=== PATIENT | female | born 1990 | race Caucasian/White ===

== ENCOUNTER → 2016-11-19 | Outpatient (CLI) | payer MEDICAID ==
[~2016-11-19] MED LIST: ACET650S12 PR; ACET650T59 PO; BENZ100C4 PO; BENZ9GEL PO; BIOT1TAB3 PO; BISA10SU2 PR; CLOP75TA PO; DOCU-30 PO; FERR325T20 PO; HYDR25TA11 PO; ILOP6TAB2 PO; LEVO750T26 PO; MILK OF MAG PO; NA P133E2 RC; ONDA4TAB7 PO; OXYC1TAB7 PO; SIMV20TA3 PO; TRAM50TA2 PO; WARF5TAB PO
[2016-11-19 15:57] LABS: BLOOD UREA NITROGEN 12 mg/dL (7-18)
== END | disposition home or self-care (01) ==
LOC: STAR 14:26
PROVIDERS: ATTEND Neurological Surgery
DX: Z01.818 Encounter for other preprocedural examination (principal); M95.2 Other acquired deformity of head
CPT/HCPCS: 36415; 71020; 80048; 85025; 85610; 85730; 93005

== ENCOUNTER 2016-11-25 13:30 | Inpatient (IN) | payer MEDICAID ==
[~2016-11-25] VITALS: Ht 170.2 cm; Wt 81.6 kg
[~2016-11-25 13:30] MED LIST changes: +ACETAMINOPHEN 325 MG TABLET PO PRN; +ACETAMINOPHEN 650 MG SUPP PR PRN; +BACITRACIN 50,000 UNIT ONE; +BUPIVACAINE/PF-EPI 0.5% 1:200K ONE; +FENTANYL PF 250 MCG/5ML ONE; +LIDOCAINE 1%, 2ML ONE; +MIDAZOLAM 1 MG/ML, 2ML ONE; +ORAJEL 7GM TUBE MM PRN; +THROMBIN 20,000 UNIT VIAL TP ONE; +VANCOMYCIN PER PHARMACY MC SCH; +morphine SULFATE 10 MG/ML, 1ML IV PRN
[2016-11-25] MEDS ORDERED: NEOSTIGMINE 1 MG/ML, 10ML ONE (13:47)
[2016-11-25] MEDS ORDERED: SUCCINYLCHOLINE 20 MG/ML, 10ML ONE (13:47)
[2016-11-25] MEDS ORDERED: PROPOFOL 10 MG/ML, 20ML ONE (13:47)
[2016-11-25] MEDS ORDERED: ONDANSETRON 2MG/ML, 2ML ONE ×2 (13:47→23:44)
[2016-11-25] MEDS ORDERED: DEXAMETHASONE 4 MG/ML, 1ML ONE (13:47)
[2016-11-25] MEDS ORDERED: ROCURONIUM 10 MG/ML ONE (13:47)
[2016-11-25] MEDS ORDERED: GLYCOPYRROLATE 0.2MG/1ML ONE (13:47)
[2016-11-25] MEDS ORDERED: CLINDAMYCIN 150 MG/ML, 6ML ONE (15:05)
[2016-11-25] MEDS ORDERED: THROMBIN 20,000 UNIT VIAL TP ONE (15:50)
[2016-11-25] MEDS ORDERED: HYDROmorphone 2 MG/ML, 1ML ONE (16:08)
[2016-11-25] MEDS ORDERED: BACITRACIN OINT 500U/GM, 15 GM ONE (16:12)
[2016-11-25] MEDS ORDERED: VANCOMYCIN 1,500 MG in SODIUM CHLORIDE 0.9% 250 ML IV ONE (20:00)
[2016-11-25] MEDS: LEVETIRACETAM 500 MG TABLET PO SCH (21:00)
[2016-11-25] MEDS: SIMVASTATIN 20 MG TABLET PO SCH (21:00)
[2016-11-25] MEDS: FAMOTIDINE 20 MG TABLET PO SCH (21:00)
[2016-11-25] MEDS: ONDANSETRON 2MG/ML, 2ML IV PRN (23:45)
[2016-11-26] MEDS: LACTATED RINGERS 1,000 ML IV SCH (04:00)
[2016-11-26] MEDS: ONDANSETRON 2MG/ML, 2ML IV PRN (04:10)
[2016-11-26] MEDS ORDERED: ONDANSETRON 2MG/ML, 2ML ONE (04:14)
[2016-11-26] MEDS: DOCUSATE 100 MG CAPSULE PO SCH ×2 (09:00→21:00)
[2016-11-26] MEDS: FAMOTIDINE 20 MG TABLET PO SCH ×2 (09:30→21:00)
[2016-11-26] MEDS: LEVETIRACETAM 500 MG TABLET PO SCH ×2 (09:30→21:00)
[2016-11-26 11:07] VITALS: BP 109/71
[2016-11-26] MEDS ORDERED: HYDROcodone/APAP 5/325 TABLET ONE (11:30)
[2016-11-26] MEDS: HYDROcodone/APAP 5/325 TABLET PO PRN ×2 (11:30→19:44)
[2016-11-26] MEDS ORDERED: BISACODYL 10 MG SUPP PR PRN (13:00)
[2016-11-26] MEDS ORDERED: MAGNESIUM HYDROXIDE 8%, 30ML UDC PO SCH (13:00)
[2016-11-26] MEDS ORDERED: PHARMACOKINETIC MONITORING MC PRN (13:30)
[2016-11-26] MEDS ORDERED: PHARMACOKINETIC CONSULTATION MC ONE (13:30)
[2016-11-26] MEDS ORDERED: METOCLOPRAMIDE 5 MG/ML, 2ML IV PRN (14:00)
[2016-11-26 15:01] LABS: BLOOD UREA NITROGEN 10 mg/dL (7-18)
[2016-11-26] MEDS ORDERED: FENTANYL PF 100 MCG/2ML IV PRN (20:00)
[2016-11-26 20:19] VITALS: BP 100/63
[2016-11-26] MEDS: SIMVASTATIN 20 MG TABLET PO SCH (21:00)
[2016-11-26] MEDS: VANCOMYCIN 1,600 MG in SODIUM CHLORIDE 0.9% 250 ML IV SCH (22:00)
[2016-11-27 01:44] VITALS: BP 112/67
[2016-11-27] MEDS: VANCOMYCIN 1,600 MG in SODIUM CHLORIDE 0.9% 250 ML IV SCH (01:58)
[2016-11-27] MEDS: HYDROcodone/APAP 5/325 TABLET PO PRN ×2 (01:58→09:46)
[2016-11-27] MEDS: LACTATED RINGERS 1,000 ML IV SCH ×2 (02:04→09:00)
[2016-11-27] MEDS: LEVETIRACETAM 500 MG TABLET PO SCH (09:46)
[2016-11-27] MEDS: DOCUSATE 100 MG CAPSULE PO SCH (09:46)
[2016-11-27 12:15] VITALS: BP 112/67
[2016-11-28] MEDS ORDERED: LACTATED RINGERS 1,000 ML IV SCH (10:52)
== END 2016-11-27 13:30 | DRG 516 ==
LOC: ORIP 13:30 → 4NOR 11-26 11:04
PROVIDERS: ADMIT Neurological Surgery; ATTEND Neurological Surgery
PROC: 0NU007Z Supplement Skull with Autologous Tissue Substitute, Open Approach (ICD-10-PCS; principal; 2016-11-25 13:30)
DX: M95.2 Other acquired deformity of head (principal); I69.351 Hemiplegia and hemiparesis following cerebral infarction affecting right dominant side; F32.9 Major depressive disorder, single episode, unspecified; F41.9 Anxiety disorder, unspecified; Z88.1 Allergy status to other antibiotic agents; Z88.8 Allergy status to other drugs, medicaments and biological substances; Z79.899 Other long term (current) drug therapy; Z90.89 Acquired absence of other organs; I69.320 Aphasia following cerebral infarction
CPT/HCPCS: 36415; 70450; 80048; 85025; 87081; C1713; J1100; J1170; J2250; J2405; J2704; J2710; J3010; J3370; J3490; C1781; J0330; J7050; J7120

== ENCOUNTER 2017-05-15 10:47 | Emergency (ER) | payer MEDICAID ==
[~2017-05-15] VITALS: Ht 165.1 cm; Wt 77.2 kg
[~2017-05-15 10:47] MED LIST changes: -ACETAMINOPHEN 325 MG TABLET PO PRN; -ACETAMINOPHEN 650 MG SUPP PR PRN; -BACITRACIN 50,000 UNIT ONE; +BENZ-17 PO; -BENZ100C4 PO; -BUPIVACAINE/PF-EPI 0.5% 1:200K ONE; +DOCU-131 PO; -DOCU-30 PO; -FENTANYL PF 250 MCG/5ML ONE; +FERR325T18 PO; -FERR325T20 PO; -LIDOCAINE 1%, 2ML ONE; -MIDAZOLAM 1 MG/ML, 2ML ONE; -ORAJEL 7GM TUBE MM PRN; -THROMBIN 20,000 UNIT VIAL TP ONE; -VANCOMYCIN PER PHARMACY MC SCH; -morphine SULFATE 10 MG/ML, 1ML IV PRN
[2017-05-15] MEDS ORDERED: SODIUM CHLORIDE 0.9% 1,000 ML IV ONE (11:09)
[2017-05-15] MEDS ORDERED: ONDANSETRON ODT 4 MG ONE (11:28)
[2017-05-15] MEDS ORDERED: LORazepam 1MG TABLET ONE (11:28)
[2017-05-15] MEDS ORDERED: LORazepam 2 MG/ML, 1ML IVPush ONE (11:30)
[2017-05-15] MEDS ORDERED: SODIUM CHLORIDE FLUSH 10ML SYR IVF ONE (11:30)
[2017-05-15] MEDS ORDERED: ONDANSETRON ODT 4 MG PO ONE (11:30)
[2017-05-15] MEDS ORDERED: ONDANSETRON 2MG/ML, 2ML IVPush ONE (11:30)
[2017-05-15] MEDS ORDERED: LORazepam 1MG TABLET PO ONE (11:30)
[2017-05-15 11:41] LABS: HEMATOCRIT 39.3 % (34.6-47.8); HEMOGLOBIN 12.3 g/dL (11.7-16.4); WHITE BLOOD COUNT 8.8 x10^3/uL (3.4-10)
[2017-05-15 11:47] LABS: ASPARTATE AMINO TRANSFERASE 9 U/L (15-37); BLOOD UREA NITROGEN 7 mg/dL (7-18)
[2017-05-15 19:41] VITALS: BP 116/72
== END 2017-05-15 13:51 | disposition home or self-care (01) ==
LOC: ED 12:20
DX: K52.9 Noninfective gastroenteritis and colitis, unspecified (principal); Z98.890 Other specified postprocedural states; Z86.73 Personal history of transient ischemic attack (TIA), and cerebral infarction without residual deficits
CPT/HCPCS: 36415; 70450; 80053; 81003; 83690; 84703; 85025; 99285; Q0162

== ENCOUNTER 2018-03-27 16:35 | Emergency (ER) | payer MEDICAID ==
[~2018-03-27] VITALS: Ht 165.1 cm; Wt 60.0 kg
[2018-03-27] MEDS ORDERED: ACET500T63 PO (17:17)
[2018-03-27] MEDS ORDERED: TRAM50TA2 PO (17:17)
[2018-03-27] MEDS ORDERED: ONDA4TAB12 PO (17:17)
[2018-03-27] MEDS ORDERED: BIOT800T PO (17:17)
[2018-03-27] MEDS ORDERED: PROMETHAZINE 25 MG/ML, 1ML ONE (18:30)
[2018-03-27] MEDS ORDERED: ACETAMINOPHEN 325 MG TABLET ONE (18:30)
[2018-03-27] MEDS ORDERED: ACETAMINOPHEN 325 MG TABLET PO ONE (18:30)
[2018-03-27] MEDS ORDERED: PROMETHAZINE 25 MG/ML, 1ML IM ONE (18:30)
[2018-03-27] MEDS ORDERED: DIPHENHYDRAMINE 25 MG CAPSULE ONE (18:30)
[2018-03-27] MEDS ORDERED: DIPHENHYDRAMINE 25 MG CAPSULE PO ONE (18:30)
[2018-03-27 19:26] VITALS: BP 109/64
== END 2018-03-27 19:36 | disposition home or self-care (01) ==
LOC: ED 19:22
DX: R51 Headache (principal); E78.5 Hyperlipidemia, unspecified; Z86.73 Personal history of transient ischemic attack (TIA), and cerebral infarction without residual deficits
CPT/HCPCS: 70450; 96372; 99284; J2550; Q0163

== ENCOUNTER 2018-07-02 13:21 | Emergency (ER) | payer MEDICAID ==
[~2018-07-02] VITALS: Ht 165.1 cm; Wt 78.2 kg
[~2018-07-02 13:21] MED LIST changes: +ACET500T63 PO; +BIOT800T PO; +ONDA4TAB12 PO
--- NOTE | 2018-07-02 15:14 | NUR ---
Pt wheeled to room by charge nurse.
--- NOTE | 2018-07-02 15:17 | NUR ---
Dr. Rene at bedside to evaluate pt.
[2018-07-02] MEDS ORDERED: ONDANSETRON ODT 4 MG PO ONE (15:30)
[2018-07-02] MEDS ORDERED: HYDROmorphone 2 MG/ML, 1ML IM ONE (15:30)
[2018-07-02] MEDS ORDERED: HYDROmorphone 2 MG/ML, 1ML ONE (15:32)
[2018-07-02] MEDS ORDERED: ONDANSETRON ODT 4 MG ONE (15:32)
--- NOTE | 2018-07-02 15:41 | NUR ---
task rn note: pt medicated per emar, tolerated well. pt to CT at this time.
--- NOTE | 2018-07-02 15:55 | NUR ---
Pt back to room from imaging.
[2018-07-02 16:36] VITALS: BP 110/65
--- NOTE | 2018-07-02 17:32 | NUR ---
Patient/Caregiver given discharge instructions and they have confirmed that they understand the instructions. Patient wheeled to discharge area with caregiver.
== END 2018-07-02 17:33 | disposition home or self-care (01) ==
LOC: ED 16:39
DX: G43.909 Migraine, unspecified, not intractable, without status migrainosus (principal); E78.5 Hyperlipidemia, unspecified; F42.8 Other obsessive-compulsive disorder; Z86.73 Personal history of transient ischemic attack (TIA), and cerebral infarction without residual deficits; Z87.19 Personal history of other diseases of the digestive system
CPT/HCPCS: 70450; 96372; 99284; J1170; Q0162

== ENCOUNTER 2018-12-17 20:33 | Emergency (ER) | payer MEDICAID ==
[~2018-12-17] VITALS: Ht 177.8 cm; Wt 85.0 kg
--- NOTE | 2018-12-17 20:55 | NUR ---
JAIME. REPORTRECEIVED FROM EMS. PT C/O FARRELL/N X 3 DAYS. PT HAS HX OF STROKE X A FEW TIMES AND HAS RIGHT SIDE WEAKNESS. HER SPEECH IS HER BASELINE PER CARETALKER. PT'S AOX4. RESPS EVEN AND UNLABORED. BP/SPO2 MONITORS IN PLACE. CALL LIGHT WITHIN REACH. PA AT BEDSIDE TO EVALUATE AT THIS TIME.
--- NOTE | 2018-12-17 20:56 | NUR ---
PT AMB TO BR AND BACK TO ROOM FOR UA. PT IS NOT ABLE TO PROVIDE URINE SAMPLE AT THIS TIME.
[2018-12-17] MEDS ORDERED: ONDANSETRON 2MG/ML, 2ML IVPush ONE (21:00)
[2018-12-17] MEDS ORDERED: ONDANSETRON 2MG/ML, 2ML IVPush PRN (21:00)
[2018-12-17] MEDS ORDERED: ONDANSETRON 2MG/ML, 2ML ONE (21:03)
--- NOTE | 2018-12-17 21:16 | NUR ---
PT MEDICATED PER EMAR FOR NAUSEA. PT TOLERATED WELL. STOVE FITTER AT BEDSIDE NOW.
[2018-12-17 21:28] LABS: BASOPHILS # (AUTO) 0.03 x10^3/uL (0-0.1); BASOPHILS % (AUTO) 0 % (0-1); EOSINOPHILS # (AUTO) 0.03 x10^3/uL (0-0.4); EOSINOPHILS % (AUTO) 0 % (1-7); LYMPHOCYTES # (AUTO) 1.87 x10^3/uL (1-3.4); LYMPHOCYTES % (AUTO) 20 % (22-44); MD NO; MEAN CORPUSCULAR HEMOGLOBIN 20.8 pg (27.0-34.8); MEAN CORPUSCULAR HGB CONC 31.1 g/dL (32.4-35.8); MEAN CORPUSCULAR VOLUME 66.8 fL (80-100); MEAN PLATELET VOLUME 8.9 fL (7.4-10.4); MONOCYTES # (AUTO) 0.45 x10^3/uL (0.2-0.8); MONOCYTES % (AUTO) 5 % (2-9); NEUTROPHILS # (AUTO) 7.23 x10^3/uL (1.8-6.8); NEUTROPHILS % (AUTO) 75 % (42-75); PLATELET COUNT 286 x10^3/uL (130-400); RED BLOOD COUNT 5.79 x10^6/uL (3.82-5.3); RED CELL DISTRIBUTION WIDTH 20.8 % (9.6-15.2)
[2018-12-17 21:34] LABS: ALANINE AMINOTRANSFERASE 30 U/L (12-78); ALBUMIN 4.2 g/dL (3.4-5.0); ANION GAP 7 mmol/L (5-15); CALCIUM 9.2 mg/dL (8.5-10.1); CHLORIDE 110 mmol/L (98-107); CREATININE 0.96 mg/dL (0.55-1.02)
[2018-12-17 21:38] LABS: ALKALINE PHOSPHATASE 60 U/L (45-117); BILIRUBIN,TOTAL 0.5 mg/dL (0.2-1.0); TOTAL PROTEIN 7.8 g/dL (6.4-8.2)
--- NOTE | 2018-12-17 22:00 | NUR ---
PT'S FATHER'S AND MOTHER'S NUMBER GIVEN TO EDMD.
[2018-12-17] MEDS ORDERED: KETOROLAC 30 MG/1 ML ONE (22:12)
[2018-12-17] MEDS ORDERED: DIPHENHYDRAMINE 50 MG/ML, 1ML ONE (22:12)
--- NOTE | 2018-12-17 22:18 | NUR ---
PT MEDICATED PER EMAR. PT TOLERATED WELL.
[2018-12-17] MEDS ORDERED: KETOROLAC 30 MG/1 ML IVPush ONE (22:30)
[2018-12-17] MEDS ORDERED: DIPHENHYDRAMINE 50 MG/ML, 1ML IVPush ONE (22:30)
--- NOTE | 2018-12-17 22:33 | NUR ---
PT IS NOT ABLE TO PROVIDE URINE SAMPLE STILL.
[2018-12-17 23:15] VITALS: BP 108/66
--- NOTE | 2018-12-17 23:39 | NUR ---
PT GIVEN DC INSTRUCTIONS. PT'S AOX4. RESPS EVEN AND UNLABORED. NO ACUTE DISTRESS AT DC.
== END 2018-12-17 23:40 | disposition home or self-care (01) ==
LOC: ED 21:01
DX: R51 Headache (principal); F84.0 Autistic disorder
CPT/HCPCS: 36415; 70450; 80053; 83690; 84703; 85025; 93005; 96374; 96375; 99284; J1200; J1885; J2405

== ENCOUNTER 2019-05-25 15:31 | Outpatient (CLI) | payer MEDICAID ==
[~2019-05-25 15:31] MED LIST changes: -BISA10SU2 PR; +BISA10SU4 PR; +HYDR-826 PO; -HYDR25TA11 PO
== END 2019-05-25 23:59 | disposition home or self-care (01) ==
LOC: CFH 15:31
PROVIDERS: ATTEND Psychiatry & Neurology Neuromuscular Medicine
DX: G93.89 Other specified disorders of brain (principal); Z86.69 Personal history of other diseases of the nervous system and sense organs; Z86.73 Personal history of transient ischemic attack (TIA), and cerebral infarction without residual deficits
CPT/HCPCS: 70450

== ENCOUNTER 2019-09-17 10:07 | Emergency (ER) | payer MEDICAID ==
[~2019-09-17] VITALS: Ht 162.6 cm; Wt 84.5 kg
[~2019-09-17 10:07] MED LIST changes: +ONDA-89 PO; -ONDA4TAB12 PO; +SIMV20TA19 PO; -SIMV20TA3 PO
--- NOTE | 2019-09-17 10:31 | NUR ---
THIS IS A 29 YO F W/ C/O FARRELL X3 DAYS, FEVER AND CHILLS. PT IS CURRENTLY AFEBRILE. EMS REPORTS PT IS TO SEE DR FOR ANY FARRELL LASTING LONGER THEN 3 DAYS. HX: STROKE, ASPERGERS. PT PRESENTS W/ A POLST. PT REQUESTING NO SHOTS OR IV'S. RESP EVEN AND UNLABORED. NADN. VS WDL. PT CHANGED INTO GOWN. RESTING ON GURNEY W/ CALL LIGHT IN REACH. NATALIYA RANDHAWA AT BEDSIDE FOR EVAL.
--- NOTE | 2019-09-17 12:06 | NUR ---
PT BACK FROM CT.
--- NOTE | 2019-09-17 12:17 | NUR ---
CT RESULTED. PT IS UP FOR RECHECK AT THIS TIME.
[2019-09-17] MEDS ORDERED: HYDROcodone/APAP 5/325 TABLET ONE (12:44)
[2019-09-17] MEDS ORDERED: ONDANSETRON ODT 4 MG ONE (12:45)
[2019-09-17 12:47] VITALS: BP 111/72
--- NOTE | 2019-09-17 12:47 | NUR ---
PT MEDICATED PER EMAR.
[2019-09-17] MEDS ORDERED: ONDANSETRON ODT 4 MG PO ONE (13:00)
[2019-09-17] MEDS ORDERED: HYDROcodone/APAP 5/325 TABLET PO ONE (13:00)
--- NOTE | 2019-09-17 13:08 | NUR ---
PT AMBULATED TO THE BR W/ A STEADY GAIT.
== END 2019-09-17 14:09 | disposition home or self-care (01) ==
LOC: ED 10:22
DX: G43.001 Migraine without aura, not intractable, with status migrainosus (principal); E78.5 Hyperlipidemia, unspecified; F20.9 Schizophrenia, unspecified; Z86.73 Personal history of transient ischemic attack (TIA), and cerebral infarction without residual deficits
CPT/HCPCS: 70450; 99284; Q0162

== ENCOUNTER 2019-11-07 10:52 | Emergency (ER) | payer MEDICAID ==
[~2019-11-07] VITALS: Ht 165.1 cm; Wt 80.0 kg
--- NOTE | 2019-11-07 11:07 | NUR ---
THIS IS A 29 YO F BIB EMS W/ C/O HAX3 DAYS. PT REPORTS SHE WAS TOLD BY NEUROLIGIST THAT IF SHE HAS A FARRELL FOR GREATER THEN 3 DAYS SHE NEEDS TO COME GET CT SCAN DONE TO RULE OUT STROKE. PT REPORTS SHE HAS HAD 10 STROKES AND A TBI IN 2017. PT PRESENTS W/ POLST. CAREGIVER PHONE NUMBER [phone] MARLYS. PT LIVES AT HOME BY HERSELF. HX OF ASPERGER, STROKES. PT RESTING ON GURNEY W/ CALL LIGHT IN REACH AND SIDE RAILS UPX2. VSS, CONNECTED TO MONITORING. AWAITING ED EVAL.
[2019-11-07] MEDS ORDERED: ONDANSETRON ODT 4 MG ONE (11:38)
[2019-11-07] MEDS ORDERED: HYDROcodone/APAP 5/325 TABLET ONE (11:39)
--- NOTE | 2019-11-07 11:43 | NUR ---
PT MEDICATED PER EMAR.
[2019-11-07] MEDS ORDERED: HYDROcodone/APAP 5/325 TABLET PO ONE (12:00)
[2019-11-07] MEDS ORDERED: ONDANSETRON ODT 4 MG PO ONE (12:00)
--- NOTE | 2019-11-07 12:22 | NUR ---
TELEPHONE CALL FROM [facility] CAREGIVER [phone], REQ PT BE SENT HOME BY [facility] [employer] AND WOULD LIKE A PHONE CALL WHEN WE SEND HER BACK HOME.
[2019-11-07 12:59] VITALS: BP 110/68
--- NOTE | 2019-11-07 12:59 | NUR ---
PT REPORTS RELIEF OF PAIN AFTER MEDS. PT AMBULATED TO THE BR USING A CANE, STEADY GAIT.
--- NOTE | 2019-11-07 13:45 | NUR ---
PT PICKED UP BY [facility]. MAGAN CAREGIVER CALLED AND NOTIFIED.
== END 2019-11-07 13:47 | disposition home or self-care (01) ==
LOC: ED 13:03
DX: R51 Headache (principal); E78.5 Hyperlipidemia, unspecified; Z86.73 Personal history of transient ischemic attack (TIA), and cerebral infarction without residual deficits
CPT/HCPCS: 70450; 99284; Q0162

== ENCOUNTER 2020-01-19 11:10 | Emergency (ER) | payer MEDICAID ==
[~2020-01-19] VITALS: Ht 165.1 cm; Wt 83.3 kg
[~2020-01-19 11:10] MED LIST changes: -WARF5TAB PO; +WARF5TAB2 PO
--- NOTE | 2020-01-19 11:24 | NUR ---
MAINTENANCE SHOP LABORER: PT WALKED BACK FROM LOBBY TO ROOM AT THIS TIME. STEADY UPON AMBULATION. NO ACUTE DISTRESS NOTED AT THIS TIME.
--- NOTE | 2020-01-19 11:48 | NUR ---
JORGE RANDHAWA AT BS NOW.
[2020-01-19] MEDS ORDERED: METOCLOPRAMIDE 5 MG/ML, 2ML ONE (12:21)
[2020-01-19] MEDS ORDERED: DIPHENHYDRAMINE 50 MG/ML, 1ML ONE (12:21)
[2020-01-19] MEDS ORDERED: KETOROLAC 30 MG/1 ML ONE (12:21)
[2020-01-19] MEDS ORDERED: KETOROLAC 30 MG/1 ML IVPush ONE (12:30)
[2020-01-19] MEDS ORDERED: DIPHENHYDRAMINE 50 MG/ML, 1ML IVPush ONE (12:30)
[2020-01-19] MEDS ORDERED: METOCLOPRAMIDE 5 MG/ML, 2ML IVPush ONE (12:30)
[2020-01-19] MEDS ORDERED: ONDANSETRON ODT 4 MG ONE (12:37)
[2020-01-19] MEDS ORDERED: DIPHENHYDRAMINE 25 MG CAPSULE ONE (12:38)
--- NOTE | 2020-01-19 12:40 | NUR ---
PT'S CAREGIVER FROM [facility] TALKING WITH PT'S FATHER/GUARDIAN ON THE PHONE. FATHER CONCERNED THAT PT IS GETTING FREQUENT CT SCANS, QUESTIONING IF CT IS NECESSARY. ER PA NOTIFIED, STATES PT/CAREGIVER MAY REFUSE CT.
--- NOTE | 2020-01-19 12:45 | NUR ---
PT/CAREGIVER REFUSED IV INSERTION. PT YELLED AND SAID, "NO, NO IT'S GOING TO HURT!" PT'S CAREGIVER MARLYS STATED PT IS A HARD STICK, REQUESTED PO OR IM MEDICATION. ER PA NOTIFIED, ORDERS CHANGED.
[2020-01-19 12:50] VITALS: BP 110/64
--- NOTE | 2020-01-19 12:59 | NUR ---
PT MEDICATED PER ORDERS, TOLERATED IM INJECTION WELL. SPOKE WITH PT'S FATHER/GUARDIAN BRUNO ON THE PHONE, HE IS REFUSING CT AT THIS TIME. INSTRUCTED FATHER TO HAVE PT F/U WITH HER NEUROLOGIST SCHEDULED ON 01/27/20, AND TO RETURN TO ED FOR ANY CONTINUED OR CONCENRNING SYMPTOMS.
[2020-01-19] MEDS ORDERED: KETOROLAC 30 MG/1 ML IM ONE (13:00)
[2020-01-19] MEDS ORDERED: SODIUM CHLORIDE 0.9% 1,000ML IVBOLUS ONE (13:00)
[2020-01-19] MEDS ORDERED: DIPHENHYDRAMINE 25 MG CAPSULE PO ONE (13:00)
[2020-01-19] MEDS ORDERED: ONDANSETRON ODT 4 MG PO ONE (13:00)
--- NOTE | 2020-01-19 13:23 | NUR ---
PT AMBULATED TO BR WITH CAREGIVER WITHOUT DIFFICULTY. PER PT, HEADACHE WENT FROM 10/10 TO 5/10 AFTER MEDS. CHART UP FOR RECHECK.
--- NOTE | 2020-01-19 13:38 | NUR ---
ERP IN TO SPEAK WITH PT AND CAREGIVER.
== END 2020-01-19 13:45 | disposition home or self-care (01) ==
LOC: ED 12:41
DX: G44.229 Chronic tension-type headache, not intractable (principal); E78.5 Hyperlipidemia, unspecified; Z88.8 Allergy status to other drugs, medicaments and biological substances; Z86.73 Personal history of transient ischemic attack (TIA), and cerebral infarction without residual deficits
CPT/HCPCS: 96372; 99283; J1885; Q0162; Q0163

== ENCOUNTER 2020-03-16 10:43 | Emergency (ER) | payer MEDICAID ==
[~2020-03-16] VITALS: Ht 165.1 cm; Wt 80.7 kg
[2020-03-16] MEDS ORDERED: METOCLOPRAMIDE 5 MG/ML, 2ML IVPush ONE (11:30)
[2020-03-16] MEDS ORDERED: SODIUM CHLORIDE FLUSH 10ML SYR IVF ONE (11:30)
[2020-03-16] MEDS ORDERED: DIPHENHYDRAMINE 50 MG/ML, 1ML IVPush ONE (11:30)
[2020-03-16] MEDS ORDERED: KETOROLAC 30 MG/1 ML IVPush ONE (11:30)
[2020-03-16] MEDS ORDERED: SODIUM CHLORIDE 0.9% 1,000ML IVBOLUS ONE (11:30)
[2020-03-16 11:35] LABS: MICROSCOPIC INDICATED
[2020-03-16 12:07] LABS: ALANINE AMINOTRANSFERASE 42 U/L (12-78); ALBUMIN 4.1 g/dL (3.4-5.0); ANION GAP 9 mmol/L (5-15); CALCIUM 9.5 mg/dL (8.5-10.1); CHLORIDE 109 mmol/L (98-107); CREATININE 0.93 mg/dL (0.55-1.02)
[2020-03-16 12:12] LABS: ALKALINE PHOSPHATASE 61 U/L (45-117); BILIRUBIN,TOTAL 0.4 mg/dL (0.2-1.0); TOTAL PROTEIN 8.2 g/dL (6.4-8.2)
[2020-03-16] MEDS ORDERED: DIPHENHYDRAMINE 50 MG/ML, 1ML ONE (13:02)
[2020-03-16] MEDS ORDERED: METOCLOPRAMIDE 5 MG/ML, 2ML ONE (13:02)
[2020-03-16] MEDS ORDERED: KETOROLAC 30 MG/1 ML ONE (13:03)
[2020-03-16 13:08] LABS: BASOPHILS # (AUTO) 0.04 x10^3/uL (0-0.1); BASOPHILS % (AUTO) 1 % (0-1); EOSINOPHILS # (AUTO) 0.17 x10^3/uL (0-0.4); EOSINOPHILS % (AUTO) 2 % (1-7); LYMPHOCYTES # (AUTO) 2.01 x10^3/uL (1-3.4); LYMPHOCYTES % (AUTO) 22 % (22-44); MD MORPH REVIEW ONLY; MEAN CORPUSCULAR HEMOGLOBIN 19.2 pg (27.0-34.8); MEAN CORPUSCULAR HGB CONC 30.4 g/dL (32.4-35.8); MEAN PLATELET VOLUME 9.3 fL (7.4-10.4); MONOCYTES # (AUTO) 0.35 x10^3/uL (0.2-0.8); MONOCYTES % (AUTO) 4 % (2-9); NEUTROPHILS # (AUTO) 6.46 x10^3/uL (1.8-6.8); NEUTROPHILS % (AUTO) 72 % (42-75); PLATELET COUNT 292 x10^3/uL (130-400); RED CELL DISTRIBUTION WIDTH 21.4 % (9.6-15.2)
[2020-03-16 13:09] LABS: ANISOCYTOSIS 2+; HYPOCHROMIA 1+; MICROCYTOSIS 2+
[2020-03-16 13:10] LABS: OVALOCYTES 2+
[2020-03-16 13:11] LABS: <PLATELET ESTIMATE> ADEQUATE; <PLT MORPHOLOGY> NORMAL PLT MORPH; ACANTHOCYTES 1+
--- NOTE | 2020-03-16 13:11 | NUR ---
PT REPORT FROM ANAHI GRACIA. PT CARE TO BE ASSUMED. IV INFUSING W-O; 22G LT FA; SITE PATENT. PT WAS MEDICATED PER ANAHI GRACIA. BROOMCORN PRESS FEEDER IN ROOM; STATES SHE HAS TO LEAVE AT 1345 AND WON'T BE ABLE TO RETURN FOR A COUPLE OF HOURS.
[2020-03-16 13:13] VITALS: BP 112/73
== END 2020-03-16 14:24 | disposition home or self-care (01) ==
LOC: ED 11:03
DX: G43.909 Migraine, unspecified, not intractable, without status migrainosus (principal); M54.5 Low back pain; M25.511 Pain in right shoulder; Z86.73 Personal history of transient ischemic attack (TIA), and cerebral infarction without residual deficits
CPT/HCPCS: 36415; 72110; 73030; 80053; 81001; 84703; 85025; 96361; 96374; 96375; 99284; J1200; J1885; J2765; J7030

== ENCOUNTER 2020-09-01 12:06 | Emergency (ER) | payer MEDICAID ==
[~2020-09-01] VITALS: Ht 165.1 cm; Wt 80.1 kg
--- NOTE | 2020-09-01 13:00 | NUR ---
PT TO ROOM 27 W/ C/O MIGRAINE FARRELL STARTED FRIDAY NIGHT. PT HAS HX MIGRAINE FARRELL. PT ALSO HAS HX CVA X 10. LAST CVA 4 YEARS AGO. PT PLACED ON MONITORS. NADN. VSS. CAREGIVER AT BEDSIDE. PT RESTING ON GURNEY. WARM BLANKET PROVIDED.
--- NOTE | 2020-09-01 13:27 | NUR ---
PT RESTING ON GURNEY. NADN. PLATA.
[2020-09-01] MEDS ORDERED: DIPHENHYDRAMINE 25 MG CAPSULE ONE (13:30)
[2020-09-01] MEDS ORDERED: KETOROLAC 60 MG/2 ML ONE (13:30)
[2020-09-01] MEDS ORDERED: ONDANSETRON ODT 4 MG PO ONE (13:30)
[2020-09-01] MEDS ORDERED: ONDANSETRON ODT 4 MG ONE (13:30)
[2020-09-01] MEDS ORDERED: KETOROLAC 30 MG/1 ML IM ONE (13:30)
[2020-09-01] MEDS ORDERED: DIPHENHYDRAMINE 25 MG CAPSULE PO ONE (13:30)
[2020-09-01 13:50] LABS: BASOPHILS % (AUTO) 1 % (0-1); EOSINOPHILS % (AUTO) 2 % (1-7); LYMPHOCYTES % (AUTO) 32 % (22-44); MEAN CORPUSCULAR HEMOGLOBIN 18.4 pg (27.0-34.8); MEAN CORPUSCULAR HGB CONC 30.2 g/dL (32.4-35.8); MEAN PLATELET VOLUME 8.9 fL (7.4-10.4); MONOCYTES % (AUTO) 7 % (2-9); NEUTROPHILS % (AUTO) 59 % (42-75); PLATELET COUNT 348 x10^3/uL (130-400); RED BLOOD COUNT 5.67 x10^6/uL (3.82-5.3); RED CELL DISTRIBUTION WIDTH 21.1 % (9.6-15.2)
[2020-09-01 13:52] LABS: ALANINE AMINOTRANSFERASE 31 U/L (12-78); ALBUMIN 3.9 g/dL (3.4-5.0); ANION GAP 8 mmol/L (5-15); CALCIUM 8.8 mg/dL (8.5-10.1); CHLORIDE 113 mmol/L (98-107); CREATININE 0.85 mg/dL (0.55-1.02)
[2020-09-01 13:53] LABS: MD MORPH REVIEW ONLY
[2020-09-01 13:54] LABS: ALKALINE PHOSPHATASE 55 U/L (45-117); BILIRUBIN,TOTAL 0.3 mg/dL (0.2-1.0); TOTAL PROTEIN 7.3 g/dL (6.4-8.2)
--- NOTE | 2020-09-01 14:13 | NUR ---
PT RESTING ON GURNEY. NADN. PLATA.
[2020-09-01 14:14] LABS: ANISOCYTOSIS 2+; HYPOCHROMIA 1+; MICROCYTOSIS 2+
[2020-09-01 14:16] LABS: OVALOCYTES 2+
[2020-09-01 14:17] LABS: <PLATELET ESTIMATE> ADEQUATE; <PLT MORPHOLOGY> NORMAL PLT MORPH; ECHINOCYTES 1+
--- NOTE | 2020-09-01 15:02 | NUR ---
BREAK RN- PT SLEEPING AT THIS TIME. VS WNL ON MONITOR. CAREGIVER AT BEDSIDE.
[2020-09-01 16:08] VITALS: BP 130/71
--- NOTE | 2020-09-01 16:08 | NUR ---
PT RESTING ON GURNEY. NADN. PLATA.
== END 2020-09-01 16:57 | disposition home or self-care (01) ==
LOC: ED 14:42
DX: G43.009 Migraine without aura, not intractable, without status migrainosus (principal); E78.5 Hyperlipidemia, unspecified; Z86.73 Personal history of transient ischemic attack (TIA), and cerebral infarction without residual deficits
CPT/HCPCS: 36415; 70450; 80053; 85025; 96372; 99285; J1885; Q0162; Q0163